=== PATIENT | female | born 1990 | race African-American/Black ===

== ENCOUNTER 2016-11-02 11:36 | Emergency (ER) | payer OTHER ==
[~2016-11-02] VITALS: Ht 165.1 cm; Wt 93.0 kg
[2016-11-02 11:48] VITALS: BP 121/84
== END 2016-11-02 13:44 | disposition home or self-care (01) ==
LOC: ER 12:48
DX: H61.22 Impacted cerumen, left ear (principal); H65.191 Other acute nonsuppurative otitis media, right ear; H60.92 Unspecified otitis externa, left ear; J02.9 Acute pharyngitis, unspecified; J30.9 Allergic rhinitis, unspecified
CPT/HCPCS: 87070; 87430; 99283; X7700

== ENCOUNTER 2017-02-14 20:23 | Emergency (ER) | payer OTHER | END 2017-02-14 22:25 | disposition left against medical advice (07) | LOC: ER 20:23 | DX: M79.605 Pain in left leg (principal); Z53.21 Procedure and treatment not carried out due to patient leaving prior to being seen by health care provider ==

== ENCOUNTER 2017-03-26 17:01 | Emergency (ER) | payer OTHER | END 2017-03-26 22:00 | disposition left against medical advice (07) | LOC: ER 21:22 | DX: R30.0 Dysuria (principal); Z53.21 Procedure and treatment not carried out due to patient leaving prior to being seen by health care provider ==

== ENCOUNTER 2017-03-29 09:43 | Emergency (ER) | payer OTHER ==
[~2017-03-29] VITALS: Ht 162.6 cm; Wt 104.0 kg
[2017-03-29 10:17] VITALS: BP 123/79
== END 2017-03-29 14:46 | disposition left against medical advice (07) ==
LOC: ER 14:44
DX: R10.2 Pelvic and perineal pain (principal); Z53.21 Procedure and treatment not carried out due to patient leaving prior to being seen by health care provider

== ENCOUNTER 2017-06-15 11:08 | Emergency (ER) | payer OTHER ==
[~2017-06-15] VITALS: Ht 165.1 cm; Wt 100.0 kg
[2017-06-15 11:20] VITALS: BP 130/77
[2017-06-15 11:38] LABS: CLARITY URINE CLOUDY (CLEAR); COLOR URINE YELLOW (YELLOW); GLUCOSE URINE NEGATIVE (NEGATIVE); KETONES URINE TRACE (NEGATIVE); LEUKOCYTE ESTERASE URINE 2+ (NEGATIVE); NITRITE URINE NEGATIVE (NEGATIVE); OCCULT BLOOD URINE NEGATIVE (NEGATIVE); PROTEIN URINE NEGATIVE (NEGATIVE)
[2017-06-15 11:48] LABS: BASOPHILS % 0.8 % (0.0-2.0); EOSINOPHILS % 2.4 % (0.0-5.0); HEMOGLOBIN. 13.2 g/dL (12.0-16.0); LYMPHOCYTES % 30.7 % (20.0-50.0); MEAN CORPUSCULAR VOLUME 88.4 fL (81.0-99.0); MONOCYTES % 6.9 % (2.0-8.0); NEUTROPHILS % 59.2 % (40.0-76.0); PLATELET 274 x1000/uL (130-400); RED BLOOD CELL COUNT 4.41 mill/uL (4.2-5.4)
[2017-06-15 11:53] LABS: CHLORIDE 108 mEq/L (98-107)
[2017-06-15 12:01] LABS: CARBON DIOXIDE 24 mEq/L (21-32)
[2017-06-15 12:14] LABS: PROTHROMBIN TIME 10.7 sec (9.4-11.6)
[2017-06-15] MEDS ORDERED: AZITHROMYCIN 500 MG TABLET PO ONE (13:15)
[2017-06-15] MEDS ORDERED: CEFTRIAXONE SODIUM 250 MG/VIAL IM ONE (13:15)
[2017-06-15] MEDS ORDERED: LIDOCAINE HCL 1% 20ML VIAL (Pyxis) INJ MC ONE (14:15)
[2017-06-17 04:18] LABS: CHLAMYDIA TRACHOMATIS NAA Negative (Negative); NEISSERIA GONORRHOEAE NAA Negative (Negative)
== END 2017-06-15 14:26 | disposition home or self-care (01) ==
LOC: ER 12:33
DX: N39.0 Urinary tract infection, site not specified (principal); D25.9 Leiomyoma of uterus, unspecified; Z20.2 Contact with and (suspected) exposure to infections with a predominantly sexual mode of transmission
CPT/HCPCS: 36415; 80053; 81001; 81025; 83690; 85025; 85610; 87210; 87491; 87591; 99284; J0696; J3490; Z7610

== ENCOUNTER 2017-10-18 09:25 | Emergency (ER) | payer MEDICAID, OTHER ==
[~2017-10-18] VITALS: Ht 165.1 cm; Wt 104.0 kg
[2017-10-18 10:59] LABS: CLARITY URINE CLEAR (CLEAR); COLOR URINE YELLOW (YELLOW); KETONES URINE NEGATIVE (NEGATIVE); LEUKOCYTE ESTERASE URINE NEGATIVE (NEGATIVE); NITRITE URINE NEGATIVE (NEGATIVE); OCCULT BLOOD URINE NEGATIVE (NEGATIVE); PH URINE 6.5 (4.5-8.0); PROTEIN URINE NEGATIVE (NEGATIVE); SPECIFIC GRAVITY URINE 1.026 (1.005-1.030)
[2017-10-18 11:30] VITALS: BP 118/62
== END 2017-10-18 11:33 | disposition home or self-care (01) ==
LOC: ER 09:29
DX: R30.0 Dysuria (principal); F17.200 Nicotine dependence, unspecified, uncomplicated
CPT/HCPCS: 81003; 81025; 99283

== ENCOUNTER 2021-01-02 19:43 | Emergency (ER) | payer MEDICAID ==
[~2021-01-02] VITALS: Ht 165.1 cm; Wt 104.2 kg
[2021-01-02 20:20] LABS: CLARITY URINE CLEAR (CLEAR); COLOR URINE YELLOW (YELLOW); KETONES URINE NEGATIVE (NEGATIVE); LEUKOCYTE ESTERASE URINE 1+ (NEGATIVE); NITRITE URINE NEGATIVE (NEGATIVE); OCCULT BLOOD URINE NEGATIVE (NEGATIVE); PH URINE 6.5 (4.5-8.0); PROTEIN URINE NEGATIVE (NEGATIVE); SPECIFIC GRAVITY URINE 1.021 (1.005-1.030)
[2021-01-02] MEDS ORDERED: IBUP-2028 MT (20:33)
[2021-01-02] MEDS ORDERED: AMOX-494 MT (20:33)
[2021-01-02 21:10] VITALS: BP 144/86
== END 2021-01-02 21:15 | disposition home or self-care (01) ==
LOC: ER 19:43
DX: B34.9 Viral infection, unspecified (principal); N39.0 Urinary tract infection, site not specified; Z20.822 Contact with and (suspected) exposure to COVID-19; R43.9 Unspecified disturbances of smell and taste; M79.89 Other specified soft tissue disorders; R51.9 Headache, unspecified; M79.18 Myalgia, other site; J02.9 Acute pharyngitis, unspecified
CPT/HCPCS: 81003; 81025; 99283; C9803; U0003; U0005; Z7610

== ENCOUNTER 2021-04-10 09:36 | Emergency (ER) | payer MEDICAID ==
[~2021-04-10] VITALS: Ht 162.6 cm; Wt 91.0 kg
[~2021-04-10 09:36] MED LIST: AMOX-494 MT; IBUP-2028 MT
[2021-04-10 09:42] VITALS: BP 127/79
[2021-04-10] MEDS ORDERED: CETI-338 PO (10:37)
[2021-04-10] MEDS ORDERED: IBUP-2029 PO (10:37)
== END 2021-04-10 11:00 | disposition home or self-care (01) ==
LOC: ER 09:36
DX: J06.9 Acute upper respiratory infection, unspecified (principal); Z20.822 Contact with and (suspected) exposure to COVID-19
CPT/HCPCS: 81025; 99283; C9803; U0003; U0005

== ENCOUNTER 2021-10-12 16:31 | Emergency (ER) | payer MEDICAID ==
[~2021-10-12] VITALS: Ht 165.1 cm; Wt 109.0 kg
[~2021-10-12 16:31] MED LIST changes: +CETI-338 PO; +IBUP-2029 PO
[2021-10-12 16:43] VITALS: BP 128/85
== END 2021-10-12 18:58 | disposition left against medical advice (07) ==
LOC: ER 16:31
DX: Z53.21 Procedure and treatment not carried out due to patient leaving prior to being seen by health care provider (principal); N93.9 Abnormal uterine and vaginal bleeding, unspecified
CPT/HCPCS: 93005

== ENCOUNTER 2022-06-23 09:14 | Emergency (ER) | payer MEDICAID ==
[~2022-06-23] VITALS: Ht 172.7 cm; Wt 101.0 kg
[2022-06-23 09:42] VITALS: BP 132/96
[2022-06-23] MEDS ORDERED: IBUP-2029 MT (10:03)
== END 2022-06-23 10:16 | disposition home or self-care (01) ==
LOC: ER 09:14
DX: N64.4 Mastodynia (principal)
CPT/HCPCS: 81025; 99282

== ENCOUNTER 2022-09-05 22:09 | Emergency (ER) | payer MEDICAID ==
[~2022-09-05] VITALS: Ht 165.1 cm; Wt 109.0 kg
[~2022-09-05 22:09] MED LIST changes: +IBUP-2029 MT
[2022-09-05 22:20] VITALS: BP 141/87
== END 2022-09-06 02:51 | disposition left against medical advice (07) ==
LOC: ER 22:09
DX: Z53.21 Procedure and treatment not carried out due to patient leaving prior to being seen by health care provider (principal)